=== PATIENT | male | born 1970 | race Caucasian/White ===

== ENCOUNTER 2020-09-07 08:45 | Day surgery (SDC) | payer BC, OTHER ==
[~2020-09-07] VITALS: Ht 180.3 cm; Wt 111.3 kg
[~2020-09-07 08:45] MED LIST: ATOR40TA PO; Actos15 MG PO; Aspir 8181 MG PO; BYDUREON P2 MG/0.61 SC; GLUCOPHAGE1000 M3 PO; Glucotrol5 MG PO; LEVSOD112 PO; LISINOPRIL-HCT1 EAC1 PO; LORA10ER PO; Naproxen500 M1 PO; SILD50TA PO; THERA-D2000 UNIT PO
== END 2020-09-07 10:05 | disposition home or self-care (01) ==
LOC: ORSCSDS 08:45
PROVIDERS: Internal Medicine Gastroenterology
PROC: 0DBL8ZX Excision of Transverse Colon, Via Natural or Artificial Opening Endoscopic, Diagnostic (ICD-10-PCS; principal; 2020-09-07 09:45)
DX: Z12.11 Encounter for screening for malignant neoplasm of colon (principal); D12.3 Benign neoplasm of transverse colon; K57.30 Diverticulosis of large intestine without perforation or abscess without bleeding; K64.8 Other hemorrhoids; Z87.891 Personal history of nicotine dependence; E66.01 Morbid (severe) obesity due to excess calories; Z68.34 Body mass index [BMI] 34.0-34.9, adult; Z79.82 Long term (current) use of aspirin; Z79.899 Other long term (current) drug therapy
CPT/HCPCS: 82947; 88305; J2704; J7120

== ENCOUNTER → 2022-05-26 | Outpatient (CLI) | payer BC, OTHER ==
[2022-05-26 19:37] LABS: Creatinine, Urine Random 61.2 mg/dL (27.00-270.00)
[2022-05-26 19:40] LABS: Microalb/Creat Ratio UR, Rand 9.657 mg/g (0.000-30.000); Microalbumin, Random Urine 5.91 mg/L (0.000-20.000)
== END ==
LOC: LAB SHORT 14:38 → LAB 14:38
DX: E11.42 Type 2 diabetes mellitus with diabetic polyneuropathy (principal); E11.43 Type 2 diabetes mellitus with diabetic autonomic (poly)neuropathy; E03.9 Hypothyroidism, unspecified; E78.2 Mixed hyperlipidemia
CPT/HCPCS: 82043; 82570